=== PATIENT | male | born 1990 | race Hispanic/Latino ===

== ENCOUNTER 2020-11-10 09:01 | Inpatient (IN) | payer OTHER, SELFPAY ==
[~2020-11-10] VITALS: Ht 177.8 cm; Wt 123.8 kg
[2020-11-10] MEDS ORDERED: DEXAMETHASONE SOD PHOSPHATE 10MG/ML 1ML VIAL ONE (09:25)
[2020-11-10] MEDS ORDERED: ASPIRIN 325 MG TABLET ONE (09:25)
[2020-11-10] MEDS ORDERED: CEFTRIAXONE SODIUM 2 GM VIAL ONE (09:26)
[2020-11-10] MEDS ORDERED: AZITHROMYCIN 250 MG TABLET PO ONE (09:26)
[2020-11-10] MEDS ORDERED: SODIUM CHLORIDE 0.9% 50 ML IV ONE (09:27)
[2020-11-10 09:52] LABS: BASOPHILS % (AUTO) 0.4 % (0.0-5.0); EOSINOPHILS % (AUTO) 0.3 % (0.0-8.0); HEMATOCRIT 42.3 % (42-54); LYMPHOCYTES % (AUTO) 22.8 % (21.0-51.0); MEAN CORPUSCULAR HGB CONC 33.6 g/dL (32.0-36.0); MEAN CORPUSCULAR VOLUME 89.4 fL (79-99); NEUTROPHILS % (AUTO) 67.4 % (40.0-77.0); PLATELET COUNT (AUTO) 291 K/uL (130-400); RED BLOOD CELL COUNT(AUTO) 4.73 MIL/uL (4.50-6.20); RED CELL DISTRIBUTION WIDTH 13.7 % (11.0-15.5); WHITE BLOOD COUNT (AUTO) 7.2 K/uL (4.8-10.8)
[2020-11-10 10:53] LABS: ALBUMIN 2.8 g/dL (3.5-5.0); BILIRUBIN,TOTAL 0.4 mg/dL (0.2-1.0); POTASSIUM 3.2 mmol/L (3.5-5.1); TOTAL PROTEIN, SERUM 7.7 g/dL (6.0-8.3)
[2020-11-10] MEDS ORDERED: ACETAMINOPHEN 325 MG TAB PO PRN ×2 (13:15)
[2020-11-10] MEDS ORDERED: ONDANSETRON HCL 4 MG/2 ML VIAL IV PRN (13:15)
[2020-11-10] MEDS ORDERED: ERGOCALCIFEROL (VITAMIN D2) 50,000 UNIT CAPSULE PO ONE (13:15)
[2020-11-10] MEDS ORDERED: DEXAMETHASONE SOD PHOSPHATE 4 MG/ML 1ML VIAL IVP SCH (13:15)
[2020-11-10] MEDS ORDERED: LACTULOSE 20 GM/30 ML UDCUP PO PRN (13:15)
[2020-11-10] MEDS ORDERED: ALBUTEROL INHALER 90MCG/INH IH PRN (13:30)
[2020-11-10] MEDS ORDERED: POTASSIUM CHLORIDE 10MEQ/100ML 100 ML IV PRN (13:30)
[2020-11-10] MEDS ORDERED: LIDOCAINE HCL-MPF 1% 2ML VIAL IV PRN (13:30)
[2020-11-10] MEDS ORDERED: POTASSIUM CHLORIDE 10% ELIXIR 20 MEQ/15 ML UDCUP PO PRN (13:30)
[2020-11-10] MEDS ORDERED: POTASSIUM CHLORIDE 20 MEQ ERTAB PO PRN (13:30)
[2020-11-10] MEDS ORDERED: PHARMACY COMMUNICATION**REMDESIVIR ORDER MISC SCH (13:30)
[2020-11-10] MEDS ORDERED: ERGOCALCIFEROL (VITAMIN D2) 50,000 UNIT CAPSULE ONE (13:51)
[2020-11-10] MEDS ORDERED: ALBUTEROL INHALER 90MCG/INH IH ONE (13:51)
[2020-11-10] MEDS ORDERED: POTASSIUM CHLORIDE 10% ELIXIR 20 MEQ/15 ML UDCUP ONE (13:51)
[2020-11-10 14:19] LABS: PROTHROMBIN TIME 10.9 SEC (9.6-11.6)
[2020-11-10 14:21] LABS: PARTIAL THROMBOPLASTIN TIME 25.6 SEC (26.3-35.5)
[2020-11-10 14:34] LABS: APPEARANCE,URINE Clear (CLEAR); BILIRUBIN,URINE Negative (NEGATIVE); COLOR,URINE Yellow (YELLOW); GLUCOSE, URINE (UA) Negative (NEGATIVE); KETONES,URINE Trace mg/dL (NEGATIVE); LEUKOCYTE ESTERASE ,URINE Negative (NEGATIVE); NITRATE,URINE Negative (NEGATIVE); OCCULT BLOOD,URINE Negative (NEGATIVE); PH,URINE 6.5 (5.0-8.0); PROTEIN,URINE Negative (NEGATIVE)
[2020-11-10 14:37] LABS: CRP QUANTITATIVE 229.5 mg/L (0.00-9.0)
[2020-11-10] MEDS ORDERED: COMPOUND IV REFRIGERATED 1 EACH IVSOLN MISC PRN (15:45)
[2020-11-10 16:00] VITALS: BP 120/78
[2020-11-10] MEDS ORDERED: REMDESIVIR (EUA) 520 200 MG in SODIUM CHLORIDE 0.9% 250 ML IV SCH (17:00)
[2020-11-10] MEDS ORDERED: IOHEXOL-350 75 ML VIAL IV ONE (17:18)
[2020-11-10] MEDS ORDERED: FAMOTIDINE 20MG TAB 20 MG TAB ONE (19:54)
[2020-11-10 20:00] VITALS: BP 125/64
[2020-11-10] MEDS: FAMOTIDINE 20MG TAB 20 MG TAB PO SCH (20:25)
[2020-11-11] VITALS: BP 123/63
[2020-11-11 04:00] VITALS: BP 124/72
[2020-11-11 04:17] LABS: BASOPHILS % (AUTO) 0.4 % (0.0-5.0); HEMATOCRIT 41.3 % (42-54); LYMPHOCYTES % (AUTO) 21.7 % (21.0-51.0); MEAN CORPUSCULAR HEMOGLOBIN 29.3 pg (27.0-33.0); MEAN CORPUSCULAR HGB CONC 32.9 g/dL (32.0-36.0); MONOCYTES % (AUTO) 8.8 % (3.0-13.0); NEUTROPHILS % (AUTO) 67.3 % (40.0-77.0); PLATELET COUNT (AUTO) 342 K/uL (130-400); RED BLOOD CELL COUNT(AUTO) 4.64 MIL/uL (4.50-6.20); RED CELL DISTRIBUTION WIDTH 13.5 % (11.0-15.5); WHITE BLOOD COUNT (AUTO) 5.5 K/uL (4.8-10.8)
[2020-11-11 04:35] LABS: ALBUMIN 2.7 g/dL (3.5-5.0); CREATININE 0.8 mg/dL (0.5-1.5)
[2020-11-11 04:55] LABS: BILIRUBIN,TOTAL 0.4 mg/dL (0.2-1.0); TOTAL PROTEIN, SERUM 7.7 g/dL (6.0-8.3)
[2020-11-11 05:10] LABS: CRP QUANTITATIVE 207.6 mg/L (0.00-9.0)
[2020-11-11] MEDS ORDERED: REMDESIVIR LABS MISC SCH (06:00)
[2020-11-11 08:29] VITALS: BP 130/91
[2020-11-11] MEDS ORDERED: ZINC SULFATE 220 CAPSULE ONE (08:38)
[2020-11-11] MEDS ORDERED: ENOXAPARIN SODIUM 40 MG/0.4 ML SYRINGE SQ ONE (08:38)
[2020-11-11] MEDS ORDERED: FAMOTIDINE 20MG TAB 20 MG TAB ONE (08:39)
[2020-11-11] MEDS ORDERED: ASCORBIC ACID 500 MG TAB ONE (08:39)
[2020-11-11] MEDS: FAMOTIDINE 20MG TAB 20 MG TAB PO SCH (08:41)
[2020-11-11] MEDS ORDERED: ZINC SULFATE 220 CAPSULE PO SCH (09:00)
[2020-11-11] MEDS ORDERED: ASCORBIC ACID 500 MG TAB PO SCH (09:00)
[2020-11-11] MEDS ORDERED: ENOXAPARIN SODIUM 40 MG/0.4 ML SYRINGE SQ SCH (09:00)
[2020-11-11] MEDS ORDERED: BENZ-39 PO (09:52)
[2020-11-11] MEDS ORDERED: GUAI-484 PO (09:52)
[2020-11-11] MEDS ORDERED: REMDESIVIR (EUA) 520 100 MG in SODIUM CHLORIDE 0.9% 250 ML IV SCH (17:00)
== END 2020-11-11 11:14 | disposition home or self-care (01) | DRG 177 ==
LOC: EDH 09:01 → EDHIP 09:02 → 2AH 14:45
PROVIDERS: ADMIT Internal Medicine; ATTEND Internal Medicine
PROC: XW033E5 Introduction of Remdesivir Anti-infective into Peripheral Vein, Percutaneous Approach, New Technology Group 5 (ICD-10-PCS; principal; 2020-11-10)
DX: U07.1 COVID-19 (principal); J12.82 Pneumonia due to coronavirus disease 2019; J96.01 Acute respiratory failure with hypoxia; E87.6 Hypokalemia; R79.89 Other specified abnormal findings of blood chemistry
CPT/HCPCS: 36415; 71045; 71275; 80053; 81003; 82728; 83615; 84484; 85025; 85378; 85610; 85730; 86140; 87040; 87088; 87426; 87804; G0378; J0696; J1100; J1650; J7050; Q9967